=== PATIENT | female | born 1950 | race Caucasian/White ===

== ENCOUNTER 2017-03-16 10:19 | Outpatient (CLI) | payer BC ==
[2017-03-16 17:34] LABS: BASOPHILS # (AUTO) 0.1 10^3/uL (0.0-0.1); EOSINOPHILS # (AUTO) 0.1 10^3/uL (0.0-0.7); EOSINOPHILS % (AUTO) 1.9 %; HCT - HEMATOCRIT 38.9 % (37.0-47.0); LYMPHOCYTES # (AUTO) 1.8 10^3/uL (1.5-3.5); LYMPHOCYTES % (AUTO) 24.8 %; MEAN CORPUSCULAR HEMOGLOBIN 28.2 pg (27.0-31.0); MEAN CORPUSCULAR HGB CONC 33.4 g/dL (32.0-36.0); MEAN CORPUSCULAR VOLUME 84.2 fL (81.0-99.0); MEAN PLATELET VOLUME 7.4 fL (7.9-10.8); MONOCYTES # (AUTO) 0.6 10^3/uL (0.0-1.0); MONOCYTES % (AUTO) 7.5 %; NEUTROPHILS # (AUTO) 4.8 10^3/uL (1.5-6.6); NEUTROPHILS % (AUTO) 64.8 %; RED BLOOD COUNT 4.62 10^6/uL (4.20-5.40); RED CELL DISTRIBUTION WIDTH 14.2 % (12.0-15.0); UNCORRECTED WHITE BLOOD COUNT 7.4 x10^3/uL; WHITE BLOOD COUNT 7.4 x10^3/uL (4.8-10.8)
[2017-03-16 18:12] LABS: ALBUMIN/GLOBULIN RATIO 1.1 (1.0-2.2); BILIRUBIN,TOTAL 0.5 mg/dL (0.2-1.0); BUN - BLOOD UREA NITROGEN 15 mg/dL (6-20); CALCIUM 8.8 mg/dL (8.5-10.3); CARBON DIOXIDE - CO2 25 mmol/L (21-32); CHLORIDE 108 mmol/L (101-111); CHOL/HDL RATIO 4.4 (<4.4); CHOLESTEROL 186 mg/dL; CREATININE 0.8 mg/dL (0.4-1.0); GFR - MDRD 72 (>89); GLUCOSE 125 mg/dL (70-100); HDL CHOLESTEROL 42 mg/dL; LDL/HDL RATIO 2.9 (<4.4); POTASSIUM 3.9 mmol/L (3.5-5.0); SODIUM 138 mmol/L (135-145); TOTAL PROTEIN 6.8 g/dL (6.7-8.2); TRIGLYCERIDES 106 mg/dL; VLDL CHOLESTEROL 21 mg/dL
== END 2017-03-16 10:20 | disposition home or self-care (01) ==
LOC: LAB.F 10:19
PROVIDERS: ATTEND Family Medicine
DX: E78.4 Other hyperlipidemia (principal)
CPT/HCPCS: 36415; 80053; 80061; 85025

== ENCOUNTER 2017-03-21 13:48 | Outpatient (CLI) | payer BC ==
--- NOTE | 2017-03-21 15:24 | XRAY Report ---
THREE VIEW PARANASAL SINUSES: 03/21/2017 CLINICAL INDICATION: Allergic rhinitis. FINDINGS: AP, Catalan, and lateral views of the paranasal sinuses demonstrate no evidence of mucosal thickening or air fluid levels. No osseous destruction is seen. The nasal septum is midline. IMPRESSION: NORMAL PARANASAL SINUSES. JOB #: [id number] EXT JOB #:[id number]
== END 2017-03-21 13:49 | disposition home or self-care (01) ==
LOC: DI.S 13:48
PROVIDERS: ATTEND Family Medicine
DX: J30.1 Allergic rhinitis due to pollen (principal)
CPT/HCPCS: 70220

== ENCOUNTER 2021-02-09 10:05 | Emergency (ER) | payer MEDICARE, BC ==
[2021-02-09 10:22] VITALS: BP 175/99
--- NOTE | 2021-02-09 11:44 | ED Physician Documentation ---
History of Present Illness - Stated complaint Stated Complaint: BAT EXPOSURE - Chief complaint Chief Complaint: General - History obtained from History obtained from: Patient (70-year-old woman awoke with a bat in her room last night. Of note she is already had a primary immunization series for rabies with 3 shots about 11 years ago. 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 : None HEENT: None Psych: None Musculoskeletal: None Derm: None - Past Surgical History Past Surgical History: Yes General: Appendectomy /DRESSED POULTRY GRADER: Hysterectomy, Oophrectomy - Present Medications Home Medications: Ambulatory Orders Medication Instructions Recorded Confirmed Olmesartan Medoxomil [Benicar] 20 mg ORAL DAILY 02/09/21 02/09/21 amLODIPine [Norvasc] 5 mg PO DAILY 02/09/21 02/09/21 - Allergies Allergies/Adverse Reactions: Allergies Allergy/AdvReac Type Severity Reaction Status Date / Time morphine AdvReac Itching Verified 02/09/21 10:22 - Social History Does the pt smoke?: No Smoking Status: Never smoker Does the pt drink ETOH?: No Does the pt have substance abuse?: No - Immunizations Immunizations are current?: No Immunizations: No immun PD ED PE NORMAL - Vitals Vital signs reviewed: Yes - General General: Alert and oriented X 3, No acute distress - Derm Derm: Normal color, Warm and dry, No rash - Neuro Neuro: Alert and oriented X 3, Normal speech - Psych Psych: Normal mood, Normal affect Results - Vitals Vitals: Vital Signs - 24 hr 02/09/21 10:19 Temperature 37.3 C Heart Rate 88 Respiratory 18 Rate Blood Pressure 175/99 H O2 Saturation 98 Oxygen O2 Source Room air PD MEDICAL DECISION MAKING - ED course ED course: Given that she has already had a primary immunization series for rabies, she only needs 2 doses, 1 today, and one on . Departure - Departure Disposition: 01 Home, Self Care Clinical Impression: Exposure to bat without known bite Condition: Good Record reviewed to determine appropriate education?: Yes Instructions: Rabies Comments: You will need a second shot of rabies vaccine on . Forms: Rabies Vaccine Series (MAC)
[2021-02-09] MEDS ORDERED: RABIES VACCINE 2.5 UNIT SYRINGE IM ONE (11:45)
== END 2021-02-09 12:09 | disposition home or self-care (01) ==
LOC: ED 10:05
DX: Z20.3 Contact with and (suspected) exposure to rabies (principal); Z86.19 Personal history of other infectious and parasitic diseases; I10 Essential (primary) hypertension
CPT/HCPCS: 90471; 99281; 99282

== ENCOUNTER 2021-02-12 10:23 | Emergency (ER) | payer MEDICARE, BC ==
[2021-02-12 10:39] VITALS: BP 147/89
--- NOTE | 2021-02-12 11:02 | ED Physician Documentation ---
PD HPI SKIN - Stated complaint Stated Complaint: BAT EXPOSURE - Chief complaint Chief Complaint: General - History obtained from History obtained from: Patient - History of Present Illness Timing - onset: How many days ago (4) Timing - details: Other (she was exposed to bat flying in her house and here 3 days ago for rabies prophylaxis. Here for 2nd of 2 vaccines. had had rabies vaccine series in the past, so just needs 2 shot booster now. 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: Hysterectomy, Oophrectomy - Present Medications Home Medications: Ambulatory Orders Medication Instructions Recorded Confirmed Olmesartan Medoxomil [Benicar] 20 mg ORAL DAILY 02/09/21 02/09/21 amLODIPine [Norvasc] 5 mg PO DAILY 02/09/21 02/09/21 - Allergies Allergies/Adverse Reactions: Allergies Allergy/AdvReac Type Severity Reaction Status Date / Time morphine AdvReac Itching Verified 02/12/21 10:39 - Social History Does the pt smoke?: No Smoking Status: Never smoker Does the pt drink ETOH?: No Does the pt have substance abuse?: No - Immunizations Immunizations are current?: No Immunizations: No immun PD ED PE NORMAL - Vitals Vital signs reviewed: Yes - General General: Alert and oriented X 3, No acute distress, Well developed/nourished - Derm Derm: Normal color, Warm and dry, Other (no redness at first vaccine site. ) Results - Vitals Vitals: Vital Signs - 24 hr 02/12/21 10:33 Temperature 36.3 C L Heart Rate 94 Respiratory 16 Rate Blood Pressure 147/89 H O2 Saturation 99 Oxygen O2 Source Room air PD MEDICAL DECISION MAKING - ED course Complexity details: reviewed old records, considered differential, d/w patient Departure - Departure Disposition: 01 Home, Self Care Clinical Impression: Exposure to bat without known bite Condition: Stable Record reviewed to determine appropriate education?: Yes Follow-Up: Brock Lamas MD [Primary Care Provider] - Comments: Given you would had a previous rabies vaccination series in the past, you just need the 2 booster shots, the one from Tuesday and the one today. You should be good from now. Return if any side effects to the vaccine through the day. Discharge Date/Time: 02/12/21 11:35
[2021-02-12] MEDS ORDERED: RABIES VACCINE 2.5 UNIT SYRINGE IM ONE (11:08)
== END 2021-02-12 11:35 | disposition home or self-care (01) ==
LOC: ED 10:23
DX: Z20.3 Contact with and (suspected) exposure to rabies (principal)
CPT/HCPCS: 90471

== ENCOUNTER 2023-04-01 12:48 | Outpatient (CLI) | payer MEDICARE, BC ==
[2023-04-01 14:53] LABS: BASOPHILS # (AUTO) 0.1 10^3/uL (0.0-0.1); BASOPHILS % (AUTO) 0.9 %; EOSINOPHILS # (AUTO) 0.2 10^3/uL (0.0-0.7); EOSINOPHILS % (AUTO) 1.9 %; HCT - HEMATOCRIT 39.6 % (37.0-47.0); HGB - HEMOGLOBIN 12.8 g/dL (12.0-16.0); LYMPHOCYTES # (AUTO) 2.1 10^3/uL (1.5-3.5); LYMPHOCYTES % (AUTO) 22.4 %; MEAN CORPUSCULAR HEMOGLOBIN 28.4 pg (27.0-31.0); MEAN CORPUSCULAR HGB CONC 32.3 g/dL (32.0-36.0); MEAN PLATELET VOLUME 9.1 fL (7.9-10.8); MONOCYTES # (AUTO) 0.5 10^3/uL (0.0-1.0); MONOCYTES % (AUTO) 5.7 %; NEUTROPHILS # (AUTO) 6.3 10^3/uL (1.5-6.6); NEUTROPHILS % (AUTO) 68.7 %; PLT - PLATELET COUNT 296 10^3/uL (130-450); RED CELL DISTRIBUTION WIDTH 13.1 % (12.0-15.0); WHITE BLOOD COUNT 9.2 x10^3/uL (4.8-10.8)
[2023-04-01 15:04] LABS: PHOSPHORUS 3.4 mg/dL (2.5-5.0)
[2023-04-01 15:06] LABS: ALBUMIN 4.2 g/dL (3.2-5.5); ALBUMIN/GLOBULIN RATIO 1.5 (1.0-2.2); ALKALINE PHOSPHATASE 55 IU/L (42-121); ALT ALANINE AMINOTRANSFERASE 17 IU/L (10-60); AST ASPARTATE AMINOTRANSFERASE 15 IU/L (10-42); BILIRUBIN,TOTAL 0.3 mg/dL (0.2-1.0); BUN - BLOOD UREA NITROGEN 21 mg/dL (6-20); CALCIUM 9.8 mg/dL (8.5-10.3); CARBON DIOXIDE - CO2 29 mmol/L (21-32); CHLORIDE 103 mmol/L (101-111); CHOL/HDL RATIO 4.4 (<4.4); CHOLESTEROL 199 mg/dL; CREATININE 0.9 mg/dL (0.6-1.3); GFR - MDRD 62 (>89); GLUCOSE 110 mg/dL (74-104); HDL CHOLESTEROL 45 mg/dL; POTASSIUM 4.1 mmol/L (3.5-4.5); SODIUM 138 mmol/L (135-145); TRIGLYCERIDES 416 mg/dL (48-352)
[2023-04-01 15:10] LABS: THYROID STIMULATING HORMONE 3.36 uIU/mL (0.34-5.60)
[2023-04-01 15:43] LABS: LDL CHOLESTEROL,DIRECT 125 mg/dL (75-193); LDLD/HDL RATIO 2.8 (<4.4)
== END 2023-04-01 12:49 | disposition home or self-care (01) ==
LOC: LAB.S 12:48
PROVIDERS: ATTEND Family Medicine
DX: I12.9 Hypertensive chronic kidney disease with stage 1 through stage 4 chronic kidney disease, or unspecified chronic kidney disease (principal); N18.9 Chronic kidney disease, unspecified; F33.9 Major depressive disorder, recurrent, unspecified; R23.9 Unspecified skin changes; E04.1 Nontoxic single thyroid nodule; M16.11 Unilateral primary osteoarthritis, right hip
CPT/HCPCS: 36415; 80053; 80061; 82306; 83721; 83970; 84100; 84439; 84443; 84481; 85025